=== PATIENT | male | born 1995 | race African-American/Black ===

== ENCOUNTER 2018-03-17 12:25 | Emergency (ER) | payer MEDICAID ==
[~2018-03-17] VITALS: Ht 185.4 cm; Wt 66.0 kg
[2018-03-17 13:30] LABS: BASOPHILS % 0.4 % (0.0-2.0); HEMATOCRIT. 45.3 % (42.0-52.0); HEMOGLOBIN. 14.9 g/dL (14.0-18.0); LYMPHOCYTES % 11.6 % (20.0-50.0); MEAN CORPUSCULAR HEMOGLOBIN 28.6 pg (28.0-32.0); MEAN CORPUSCULAR VOLUME 87.1 fL (80.0-94.0); MEAN PLATELET VOLUME 9.2 fl (7.4-10.4); MONOCYTES % 7.4 % (2.0-8.0); NEUTROPHILS % 80.6 % (40.0-76.0); PLATELET 183 x1000/uL (130-400); RED CELL DISTRIBUTION WIDTH 12.8 % (11.6-14.6)
[2018-03-17 13:34] LABS: CHLORIDE 106 mEq/L (98-107); INR 1.1; PROTHROMBIN TIME 11.4 sec (9.4-11.6)
[2018-03-17] MEDS ORDERED: SODIUM CHLORIDE 0.9% 1,000 ML IV ONE (14:22)
[2018-03-17] MEDS ORDERED: KETOROLAC 30MG/ML VIAL IV STA (14:22)
[2018-03-17] MEDS ORDERED: MORPHINE SULFATE 4 MG/ML CPJ (NOT FOR IM USE) IV STA (14:22)
[2018-03-17] MEDS ORDERED: ONDANSETRON HCL 4MG/2ML VIAL IV STA (14:22)
[2018-03-17 15:47] LABS: INR 1.1; PROTHROMBIN TIME 11.5 sec (9.4-11.6)
[2018-03-17 16:30] VITALS: BP 132/78
[2018-03-17 16:31] LABS: CLARITY URINE CLEAR (CLEAR); COLOR URINE ORANGE (YELLOW); KETONES URINE 2+ (NEGATIVE); LEUKOCYTE ESTERASE URINE NEGATIVE (NEGATIVE); NITRITE URINE NEGATIVE (NEGATIVE); OCCULT BLOOD URINE 3+ (NEGATIVE); PH URINE 6.5 (4.5-8.0); PROTEIN URINE NEGATIVE (NEGATIVE); SPECIFIC GRAVITY URINE 1.008 (1.005-1.030); UROBILINOGEN URINE 0.2 E.U./dL (0.2-1.0)
== END 2018-03-17 18:39 | disposition home or self-care (01) ==
LOC: ER 15:22
DX: N21.0 Calculus in bladder (principal); R11.2 Nausea with vomiting, unspecified; F12.10 Cannabis abuse, uncomplicated
CPT/HCPCS: 36415; 74176; 80053; 81003; 83690; 85025; 85610; 96361; 96374; 96375; 99285; J1885; J2270; J2405; J7030